=== PATIENT | female | born 1980 | race Caucasian/White ===

== ENCOUNTER → 2021-08-29 | Outpatient (CLI) | payer BC | LOC: RAD 15:45 | DX: M94.262 Chondromalacia, left knee (principal); Z98.890 Other specified postprocedural states ==

== ENCOUNTER 2021-12-22 09:00 | Emergency (ER) | payer BC ==
[2021-12-22 09:24] VITALS: BP 115/78
[2021-12-22] MEDS ORDERED: LEVOTHYROXIN0.075 MG PO (09:26)
== END 2021-12-22 10:36 | disposition home or self-care (01) ==
LOC: ED 09:00
DX: R05.9 Cough, unspecified (principal)
CPT/HCPCS: 90715